=== PATIENT | female | born 1985 | race Caucasian/White ===

== ENCOUNTER 2019-04-13 12:07 | Outpatient (RCR) | payer BC, SELFPAY | END 2019-05-11 23:59 | disposition home or self-care (01) | LOC: SPT 12:07 | PROVIDERS: Family Provider Family Medicine; PCP Family Medicine; Visit Provider Family Medicine | DX: R20.2 Paresthesia of skin (principal) | CPT/HCPCS: 97110; 97140; 97162; G0283 ==

== ENCOUNTER 2019-05-21 07:45 | Outpatient (CLI) | payer BC, SELFPAY ==
--- NOTE | 2019-05-21 08:04 | MR_ITS ---
WS: [id number] MRI CERVICAL SPINE HISTORY: NUMBNESS PARESTHESIA COMPARISON: None available. Marked straightening of the normal cervical lordosis. There is mild disc desiccation at C4-5 and C5-6 . Degenerative changes along the adjacent endplates at C5-6. No acute fracture. Signal within the cervical cord is normal. Visualized posterior fossa is unremarkable. Craniocervical junction, C1 and C2 relationship, odontoid process and soft tissues are normal. C2-C3: Normal. C3-C4: Mild annular disc bulging and osteophytosis. No stenosis. C4-C5: Mild annular disc bulging with a focal RIGHT paracentral small disc protrusion and mild osteop hytic ridging. C5-C6: Mild annular disc bulging and osteophytic ridging. Moderate osteophyte in the proximal LEFT fo ramen with only minimal narrowing of the foramen. C6-C7: Mild osteophytic ridging and disc bulging without stenosis. C7-T1: Normal. Paraspinal soft tissue are normal. MR/MR cervical spin wo con* [id number] IMPRESSION: 1. Mild straightening of the normal cervical lordosis may be due to spasm or p ositioning. 2. No severe central or foraminal stenosis. 3. Mild osteophytic ridging and annular disc bulging at several levels. 4. Focal RIGHT paracentral disc protrusion at C4-5 without cord contact. 5. Moderate-sized disc osteophyte in the proximal LEFT foramen with only mild encroachment upon the foraminal nerve roots.
== END 2019-05-21 07:46 | disposition home or self-care (01) ==
LOC: RADWPI 07:49
PROVIDERS: Family Provider Family Medicine; PCP Family Medicine; Visit Provider Family Medicine
DX: R20.2 Paresthesia of skin (principal); M50.221 Other cervical disc displacement at C4-C5 level
CPT/HCPCS: 72141

== ENCOUNTER → 2019-08-01 10:41 | Outpatient (BNVA) | payer BC, SELFPAY | PROVIDERS: Family Provider Family Medicine; PCP Family Medicine; Visit Provider Specialist | DX: M50.020 Cervical disc disorder with myelopathy, mid-cervical region, unspecified level (principal); R20.0 Anesthesia of skin; R20.2 Paresthesia of skin | CPT/HCPCS: 95910 ==

== ENCOUNTER 2019-08-02 12:48 | Outpatient (CLI) | payer BC, SELFPAY ==
--- NOTE | 2019-08-02 13:00 | XR_ITS ---
WS: [id number] LATERAL CERVICAL SPINE: 3 view. Lateral radiographs are performed in upright neutral, flexion and extension to the patient's toleranc e. HISTORY: Neck pain COMPARISON: 05/16/2017 Mild straightening of the normal cervical lordosis. Mild disc space narrowing and desiccation at C5-6 . During flexion and extension no significant instability. XR/XR cervical spine fl/ex [id number] IMPRESSION: Mild cervical spine straightening. No instability.
== END 2019-08-02 12:49 | disposition home or self-care (01) ==
LOC: RADWPI 12:52
PROVIDERS: Family Provider Family Medicine; PCP Family Medicine; Visit Provider Licensed Practical Nurse
DX: M54.2 Cervicalgia (principal)
CPT/HCPCS: 72040

== ENCOUNTER 2019-09-26 06:30 | Day surgery (SDC) | payer BC, SELFPAY ==
[2019-09-24 11:04] VITALS: BMI 33.8
[2019-09-26 06:52] VITALS: BP 122/73; PULSE 69; RESP 18; TEMP 36.9; O2SAT 100
[2019-09-26 07:05] LABS: OR HCG Qualitative Urine Negative (Negative)
[2019-09-26] MEDS: sodium chloride 0.9% 1,000 ML 30 ML IV (07:08)
--- NOTE | 2019-09-26 07:18 | ANES.PREANE2 ---
Pre-Anesthetic Assessment Pre-Anesthetic Assessment: Height/Weight: Height 1.57 m Weight 83.915 kg Temp Pulse Resp BP Pulse Ox 98.4 F 69 18 122/73 100 09/26/19 06:52 09/26/19 06:52 09/26/19 06:52 09/26/19 06:52 09/26/19 06:52 Preop Diagnosis: Desire permanent sterilization Proposed Procedure: Operation Date: 09/26/19 08:35 Proposed Procedures p Laparoscopic bilateral tubal fulguration with salpingectomy 76498/Z30.2(Not Applicable) - Ishmael Hernandez MD Last intake: Intake Last Liquid Date 09/25/19 Last Liquid Time 20:00 Last Solid Date 09/25/19 Last Solid Time 20:00 Social: Social History: Alcohol () and Tobacco (2009) Exam: Pre-Anes Outpt Exam: alert, oriented x 3, clear to auscultation bilaterally and regular rate & rhythm Airway: Submandibular: WNL Cervical ROM: WNL MP: 2 Dentition: Other (teeth good) Pulmonary: Pulmonary: None reported CV/HEM: CV/HEM: None reported : : None reported Hepatic: Hepatic: None reported GI: GI: None reported Metabolic: Metabolic: Thyroid Musc/skel: Musc/skel: None reported Neuropsych: Neuropsych: None reported Anesthetic Plan: ASA status: 2 Anesthesia: Anesthesia Evaluation and General Risk of > 500 ml blood loss (7ml/kg in children): No Meds/Allergies Current Medications: Current Medications Generic Name Dose Route Start Last Admin Trade Name Freq PRN Reason Stop Dose Admin Sodium Chloride 1,000 mls @ 30 ml s/hr 09/26/19 06:00 09/26/19 07:08 Sodium Chloride 0.9% IV 09/27/19 05:59 30 mls/hr .Q24H QUAN Administration PFSH Anesthesia PFSH: Medical History Cervical disc disorder with myelopathy of mid-cervical region Surgical History H/O oral surgery Family History Father Diabetes Mother Thyroid condition Social History Smoking and tobacco status: former smoker Alcohol intake: current Alcohol intake frequency: holidays/special occasions only Alcohol type: beer, wine and hard liquor Household members: spouse and children Marital status: Current occupational status: employed Current occupation: english adjunct faculty at [employer] History of recent travel: No Data Anesthesia Other Labs: Laboratory Results - last 48 hr 09/26/19 06:50 Urine HCG, Qual Negative Cardiac Studies: No Data to Display
[2019-09-26 07:21] LABS: Basophils # 0.1 10^3/uL (0.0-0.1); Basophils % 1.6 %; Eosinophils # 0.4 10^3/uL (0.0-0.8); Hemoglobin 12.8 g/dL (11.5-15.3); Lymphocytes % 32.1 %; Mean Corpuscular HGB Conc 32.8 g/dL (30.0-36.0); Mean Corpuscular Hemoglobin 29.1 pg (28.0-34.0); Mean Corpuscular Volume 88.6 fL (81-99); Mean Platelet Volume 11.7 fL (7.4-10.4); Monocytes # 0.5 10^3/uL (0.2-0.9); Monocytes % 8.2 %; Neutrophils # 3.3 10^3/uL (1.8-7.7); Neutrophils % 51.9 %; Nucleated Red Blood Cells % 0 %; Platelet Count 230 10^3/cmm (130-400); Red Cell Distribution Width 12.2 % (12.1-15.1); White Blood Count 6.3 10^3/uL (4.0-10.0)
[2019-09-26 07:36] LABS: Anion Gap 13.7 (5-19); Blood Urea Nitrogen 12 mg/dL (6-20); Carbon Dioxide 25 mmol/L (22-29); Chloride 103 mmol/L (98-107); Glomerular Filtration Rate 113.1 mL/min (90-130); Glucose 83 mg/dL (65-115); Osmolality Calculated 281 mOsm/kg (285-295); Potassium 3.7 mmol/L (3.5-5.1); Sodium 138 mmol/L (136-145)
--- NOTE | 2019-09-26 08:54 | W.PM.OPSUD ---
Surgery/Procedure H&P Update DATE OF PROCEDURE: September 26, 2019 DATE H&P PERFORMED: 09/24/19 H&P UPDATE INFORMATION: I have reviewed H&P completed within last 30 days, I have examined patient prior to procedure and No changes to prior documentation PREOP DIAGNOSIS: Desire permanent sterilization PLANNED PROCEDURE: Operation Date: 09/26/19 08:35 Proposed Procedures p Laparoscopic bilateral tubal fulguration with salpingectomy 93614/Z30.2(Not Applicable) - Ishmael Hernandez MD
--- NOTE | 2019-09-26 10:13 | PM.OP ---
Operative Report Date of procedure: September 26, 2019 Pre-op Diagnosis: Desire permanent sterilization Post-op diagnosis: same Procedure Done: Laparoscopic bilateral salpingectomy Specimens removed/disposition: Left and right fallopian tube Surgeon: Ishmael Hernandez Anesthesia: General Estimated blood loss (mL): 5 IV fluids (mL): 900 Urine output (mL): 400 Complications: None Condition: stable Disposition: PACU Brief History: 34-year-old female desire for permanent sterilization Procedure: After informed consent, the patient was taken to the operating room where general anesthesia was administered. She was placed in the dorsal lithotomy position and prepped and draped in sterile fashion. Pre-Procedure Time-Out verifying the correct patient identity, correct procedure verified with consent, correct site and side, correct patient position, availability of correct implants and any special equipment or requirements was performed and acknowledge by the OR team. The patient was examined under anesthesia and found to have a normal uterus with normal adnexa. A weighted speculum was placed in the vagina, and the anterior lip of cervix was grasped with the single toothed tenaculum. A uterine manipulator was advanced into the endocervical canal and uterus. The tenaculum was removed after uterine manipulator was secured. The speculum was removed from the vagina. An intraumbilical incision was made with a scalpel. While tenting up on the abdomen, a Verres needle was admitted into the intra-abdominal cavity. A saline drop test was performed and noted to be within normal limits. Pneumoperitoneum was attained with 4 liters of carbon dioxide. The Verres needle was removed. A 5 mm Opitc view trocar and sleeve were admitted into the abdomen and laparoscopic confirmation of location was achieved. A second incision was made 3 cm above the symphysis pubis, and a 5 mm trocar sleeves were admitted into the abdomen under direct laparoscopic visualization without complication. A survey revealed normal abdominal anatomy with the exception of string adhesion to the right lower anterior abdominal wall. A 5 mm blunt probe was advanced through the second trocar sleeve, and light manipulation of ovaries and uterus to assess the posterior aspects was performed. The pelvic survey shows normal uterus, left and right adnexa. The left ovary was noted with a follicular cyst. The string adhesion was fulgurated and transected with good hemostasis with the Voyant. The patient was placed into Trendelenburg position. The fallopian tubes were inspected bilaterally and the fimbriated ends of the fallopian tubes were visualized bilaterally. Attention was then directed to the right side. The fallopian tube and mesosalpinx were grasped and the underlying mesosalpinx was cauterized and cut using the Voyant device. Serial cauterization and cutting was used to separate the fallopian tube from the underlying mesosalpinx until it could be amputated cutting it approximated 2 cm from the cornua. Attention was then turned to the contralateral fallopian tube, which was removed in similar fashion. Both specimens were removed through the trocar and sent to pathology. The instruments were removed. The suprapubic trocar port was removed under direct visualization insuring good hemostasis. The carbon dioxide was allowed to escape from the abdomen. The intraumbilical trocar sleeve was withdrawn under visualization with laparoscope in the sleeve to insure hemostasis. The skin incisions were closed with 3-O Monocryl subcuticular stich and Exofin Bioureadhesive. The instruments were removed from the vagina, and excellent hemostasis was noted. The patient tolerated the procedure well, and sponge, lap and needle count were correct times two. The patient was taken to the recovery room in good condition.
[2019-09-26 10:16] VITALS: BP 122/77; PULSE 70; RESP 16; TEMP 36.4; O2SAT 100
[2019-09-26 10:20] VITALS: BP 117/76; PULSE 72; RESP 21; O2SAT 100
[2019-09-26 10:25] VITALS: BP 124/71; PULSE 70; RESP 17; TEMP 36.6; O2SAT 100
[2019-09-26 10:38] VITALS: BP 109/77; PULSE 68; RESP 18; O2SAT 100
[2019-09-26] MEDS: HYDROcodone-acetaminophen 5-325 mg Tablet 1 TAB PO (10:47)
[2019-09-26 11:03] VITALS: BP 106/66; PULSE 68; RESP 18; O2SAT 100
== END 2019-09-26 11:12 | disposition home or self-care (01) ==
PROVIDERS: PCP Family Medicine; Visit Provider Obstetrics & Gynecology
PROC: (CPT 58661; principal; 2019-09-26 08:35)
DX: Z30.2 Encounter for sterilization (principal); Z87.891 Personal history of nicotine dependence
CPT/HCPCS: 58661; 12345; 36415; 80048; 81025; 84703; 85025; 86850; 86900; 87086; 88302; J0690; J1100; J2405; J2704; J3490; J7030

== ENCOUNTER → 2019-11-05 10:25 | Outpatient (BNVA) | payer BC, SELFPAY | PROVIDERS: PCP Family Medicine; Referring Provider Specialist; Visit Provider Anesthesiology Pain Medicine | DX: M43.12 Spondylolisthesis, cervical region (principal); M47.812 Spondylosis without myelopathy or radiculopathy, cervical region; M50.90 Cervical disc disorder, unspecified, unspecified cervical region; Z79.891 Long term (current) use of opiate analgesic | CPT/HCPCS: 99203; 99204 ==

== ENCOUNTER → 2019-11-19 14:22 | Outpatient (BNVA) | payer BC, SELFPAY | PROVIDERS: PCP Family Medicine; Visit Provider Anesthesiology Pain Medicine | DX: M50.90 Cervical disc disorder, unspecified, unspecified cervical region (principal); Z79.891 Long term (current) use of opiate analgesic | CPT/HCPCS: 62321; J1100 ==

== ENCOUNTER → 2019-12-11 08:31 | Outpatient (BNVA) | payer BC, SELFPAY | PROVIDERS: PCP Family Medicine; Visit Provider Anesthesiology Pain Medicine | DX: M50.020 Cervical disc disorder with myelopathy, mid-cervical region, unspecified level (principal); M50.90 Cervical disc disorder, unspecified, unspecified cervical region; M54.10 Radiculopathy, site unspecified; M43.12 Spondylolisthesis, cervical region; M47.812 Spondylosis without myelopathy or radiculopathy, cervical region; R20.0 Anesthesia of skin; R20.2 Paresthesia of skin | CPT/HCPCS: 62321; 99213; J1100 ==

== ENCOUNTER → 2019-12-24 08:58 | Outpatient (BNVA) | payer BC, SELFPAY | PROVIDERS: PCP Family Medicine; Visit Provider Anesthesiology Pain Medicine | DX: M43.12 Spondylolisthesis, cervical region (principal); M47.812 Spondylosis without myelopathy or radiculopathy, cervical region; M50.90 Cervical disc disorder, unspecified, unspecified cervical region; Z79.899 Other long term (current) drug therapy | CPT/HCPCS: 99212; 99213 ==

== ENCOUNTER 2020-06-23 10:41 | Outpatient (CLI) | payer BC, SELFPAY ==
--- NOTE | 2020-06-23 10:44 | CT_ITS ---
WS: [id number] CT scan of the abdomen and pelvis without Oral and IV contrast. Additional two-dimensional coronal a nd sagittal reconstruction was performed. 06/23/2020 Clinical Data: HEMATURIA, LEFT FLANK PAIN Comparison: None. DLP: 1146.[address] scans at [facility] use at least one of these dose optimization techniques: automat ed exposure control; mA and/or kV adjustment per patient size (includes targeted exams where dose is matched to clinical indication); or iterative reconstruction. Findings: The lower lungs show no nodules, masses or effusions. The liver, gallbladder, spleen, adrenal glands and pancreas are normal. The kidneys show no renal calculi, hydronephrosis, masses or cysts. No ureteral calculi are seen. The abdominal aorta is normal in size. No appendicitis or diverticulitis is seen. The stomach, small bowel and colon are not remarkable. No abscess, adenopathy, ascites, mass, obstruction or free air is seen. The bladder is unremarkable. The uterus shows a probable 3.9 cm low-density leiomyoma. No inguinal he rnia is seen. The bones of the lower thorax, lumbar spine, pelvis, and hips are normal. CT/CT kidney stone [id number] Impression: 1. Negative for renal or ureteral calculi. 2. Negative for acute intra-abdominal or pelvic abnormalities.
== END 2020-06-23 10:42 | disposition home or self-care (01) ==
LOC: RADWPI 10:44
PROVIDERS: PCP Family Medicine; Visit Provider Family Medicine
DX: R31.9 Hematuria, unspecified (principal); R10.9 Unspecified abdominal pain
CPT/HCPCS: 74176

== ENCOUNTER → 2022-09-10 10:17 | Outpatient (BNVA) | payer BC, SELFPAY | PROVIDERS: PCP Family Medicine; Visit Provider Family Medicine | DX: M50.90 Cervical disc disorder, unspecified, unspecified cervical region (principal); F11.90 Opioid use, unspecified, uncomplicated; F41.9 Anxiety disorder, unspecified; E03.9 Hypothyroidism, unspecified; Z13.6 Encounter for screening for cardiovascular disorders | CPT/HCPCS: 80053; 80061; 84443 ==

== ENCOUNTER → 2023-07-14 09:14 | Outpatient (BNVA) | payer BC, SELFPAY | PROVIDERS: PCP Family Medicine; Visit Provider Family Medicine | DX: E03.9 Hypothyroidism, unspecified (principal); F11.90 Opioid use, unspecified, uncomplicated; M43.12 Spondylolisthesis, cervical region; M50.90 Cervical disc disorder, unspecified, unspecified cervical region; Z13.6 Encounter for screening for cardiovascular disorders | CPT/HCPCS: 80053; 80061; 84443 ==

== ENCOUNTER → 2024-01-26 08:52 | Outpatient (BNVA) | payer BC, SELFPAY | PROVIDERS: PCP Family Medicine; Visit Provider Family Medicine | DX: E03.9 Hypothyroidism, unspecified (principal) | CPT/HCPCS: 84443 ==

== ENCOUNTER → 2024-08-30 09:19 | Outpatient (BNVA) | payer BC, SELFPAY | PROVIDERS: PCP Family Medicine; Visit Provider Family Medicine | DX: E03.9 Hypothyroidism, unspecified (principal); M50.020 Cervical disc disorder with myelopathy, mid-cervical region, unspecified level | CPT/HCPCS: 80053; 80061; 84443 ==

== ENCOUNTER → 2025-04-08 13:28 | Outpatient (BNVA) | payer BC, SELFPAY | PROVIDERS: PCP Family Medicine; Visit Provider Family Medicine | DX: E03.9 Hypothyroidism, unspecified (principal) | CPT/HCPCS: 84443 ==